=== PATIENT | male | born 1985 | race Caucasian/White ===

== ENCOUNTER 2018-08-19 13:54 | Emergency (ER) | payer MEDICAID ==
[~2018-08-19] VITALS: Ht 188 cm; Wt 81.7 kg
[2018-08-19] MEDS ORDERED: CITALOPRAM HBR10 MG PO (14:16)
[2018-08-19] MEDS ORDERED: ATIVAN1 MG PO (14:16)
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
== END 2018-08-19 14:28 | disposition home or self-care (01) ==
LOC: ED 13:54
DX: F41.9 Anxiety disorder, unspecified (principal); Z87.891 Personal history of nicotine dependence
CPT/HCPCS: 99283

== ENCOUNTER 2018-08-27 19:17 | Emergency (ER) | payer MEDICAID ==
[~2018-08-27] VITALS: Ht 188 cm; Wt 81.7 kg
[~2018-08-27 19:17] MED LIST: ATIVAN1 MG PO; CITALOPRAM HBR10 MG PO; IBUPROFEN800 MG PO
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
[2018-08-27] MEDS ORDERED: AMOXICILLIN500 MG PO (20:07)
[2018-08-27] MEDS ORDERED: CELEXA10 MG PO (20:11)
== END 2018-08-27 22:15 | disposition home or self-care (01) ==
LOC: ED 19:17
DX: F41.9 Anxiety disorder, unspecified (principal); Z87.891 Personal history of nicotine dependence; Z79.899 Other long term (current) drug therapy
CPT/HCPCS: 99283